=== PATIENT | female | born 2000 | race Caucasian/White ===

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

== ENCOUNTER 2022-07-02 12:36 | Observation (INO) | payer BC, MEDICAID, SELFPAY ==
[2022-07-02 12:14] VITALS: BP 123/76; PULSE 104
[2022-07-02 12:15] VITALS: BP 112/81; PULSE 134
[2022-07-02 12:30] VITALS: BP 124/79; PULSE 92
[2022-07-02 12:45] VITALS: BP 115/75; PULSE 89; TEMP 37
[2022-07-02] MEDS: DEXTROSE 5%/LACTATED RINGERS 1,000 ML 999 ML IV CONT (13:13)
[2022-07-02] MEDS: ONDANSETRON INJ 4 MG/2 ML VIAL IV PUSH (13:15)
[2022-07-02 13:16] LABS: Basophils Absolute Auto 0.1 K/mm3 (0.0-0.1); Basophils Percent Auto 0.4 % (0.2-1.2); Eosinophils Percent Auto 0.1 % (0-4.4); Hematocrit 35.5 % (37.0-47.0); Hemoglobin 10.8 g/dL (12.0-15.0); Immature Granulocyte Percent A 0.6 % (0-0.5); Lymphocytes Absolute Auto 0.98 K/mm3 (0.9-3.2); Mean Corpuscular HGB Conc 30.4 g/dl (32-36); Mean Corpuscular Hemoglobin 26.2 pg (26-34); Mean Platelet Volume 10.4 fl (7.4-10.4); Monocytes Absolute Auto 0.7 K/mm3 (0.1-0.6); Monocytes Percent Auto 4.1 % (2.6-8.5); Neutrophils Absolute Auto 14.6 K/mm3 (1.3-6.7); Neutrophils Percent Auto 88.8 % (45.5-73.1); Platelet Count Result 197 k/mm3 (150-375); Red Blood Count 4.13 M/mm3 (4.2-5.4); Red Cell Distribution Width 13.6 % (11.5-14.5); White Blood Count 16.4 K/mm3 (4.5-10.0)
[2022-07-02 13:36] LABS: Alanine Aminotransferase 44 U/L (6-35); Albumin Level 3.7 g/dL (3.7-5.6); Alkaline Phosphatase 140 U/L (45-116); Anion Gap 7 mmol/L (8-16); Aspartate Amino Transferase 32 U/L (14-36); Bilirubin,Total 0.6 mg/dL (0.2-1.3); Blood Urea Nitrogen 8 mg/dL (8-21); Calcium 8.6 mg/dL (8.9-10.7); Carbon Dioxide 22 mmol/L (22-30); Chloride 109 mmol/L (98-107); Estimated Glomerular Filt Rate > 60; Glucose 78 mg/dL (65-110); Potassium 3.9 mmol/L (3.4-5.0); Sodium 138 mmol/L (134-143)
[2022-07-02 13:41] VITALS: BMI 27.2
--- NOTE | 2022-07-02 13:41 | OBADM ---
This patient, Jose Encinas, admitted to the OB room OB Post 117 for observation. Patient/family oriented to hospital policies and general routines including ID bracelet, bed and alarms, visiting hours, pain management, procedures, bathroom and other care routines, personal items, smoking policy, room service/diet, and visiting hours. Patient/Family are encouraged to report perceived risks to care and to ask questions if they do not understand what they are told or what they should do. Pt. presents with reports of vomiting X8 since 929 this a.m., states she hasn't been able to eat or drink, reports movement and denies any ctxns.
[2022-07-02 14:19] LABS: Appearance Urine Clear (Clear); Bacteria Urine Rare /hpf; Bilirubin Urine Negative (Negative); Blood Urine Negative (Negative); Color Urine Yellow (Yellow); Glucose Urine UA 1+ mg/dL (Negative); Ketones Urine Trace mg/dL (Negative); Leukocyte Esterase Ur 1+ LEU/UL (Negative); Nitrate Urine Negative (Negative); Protein Urine Trace mg/dL (Negative); RBC Urine 0-2 /hpf (0-2); Specific Grav Ur 1.023 (1.001-1.035); Squamous Epithelial Cell Urine Few /hpf (Few); pH Urine 5.5 (5.0-9.0)
[2022-07-02 14:34] LABS: Add Urine Microscopic? YES
--- NOTE | 2022-07-26 14:25 | P.PNOB_ITS ---
OB - Triage/Final Diagnosis Visit Information Comments/Additional reasons for admission: I have assessed the risk for this patient, Jose Encinas, and determined that she would benefit from observation care. Evaluation Laboratory results: Laboratory Tests 07/02/22 07/02/22 07/02/22 12:49 13:03 13:03 WBC 16.4 H RBC 4.13 L Hgb 10.8 L Hct 35.5 L MCV 86.0 MCH 26.2 MCHC 30.4 L RDW 13.6 Plt Count 197 MPV 10.4 Immature Gran % (Auto) 0.6 H Neut % (Auto) 88.8 H Lymph % (Auto) 6.0 L [place] % (Auto) 4.1 Eos % (Auto) 0.1 Baso % (Auto) 0.4 Lymph # (Auto) 0.98 [place] # (Auto) 0.7 H Eos # (Auto) 0.0 Baso # (Auto) 0.1 Abs Immat Gran (auto) 0.10 H Absolute Neuts (auto) 14.6 H Absolute Nucleated RBC 0.0 Nucleated RBC % 0.0 Sodium 138 Potassium 3.9 Chloride 109 H Carbon Dioxide 22 Anion Gap 7 L BUN 8 Creatinine 0.50 L Estim Creat Clear Calc Not Reportable Estimated GFR > 60 Glucose 78 Calcium 8.6 L Total Bilirubin 0.6 AST 32 ALT 44 H Alkaline Phosphatase 140 H Total Protein 7.0 Albumin 3.7 Urine Color Yellow Urine Appearance Clear Urine pH 5.5 Ur Specific [place] 1.023 Urine Protein Trace Urine Glucose (UA) 1+ H Urine Ketones Trace Ur Blood (Man) Negative Urine Nitrate Negative Urine Bilirubin Negative Urine Urobilinogen 1.0 Leukocyte Esterase Rfl 1+ H Urine RBC 0-2 Urine WBC 11-20 Ur Squamous Epith Cells Few Urine Bacteria Rare Urine Casts 3-5 Final Diagnosis (1) Nausea and vomiting during : Code(s): O21.9 - Vomiting of , unspecified Status: Acute
== END 2022-07-02 15:15 | disposition home or self-care (01) ==
PROVIDERS: Admitting Provider Obstetrics & Gynecology; Visit Provider Obstetrics & Gynecology
DX: O21.2 Late vomiting of pregnancy (principal); Z3A.37 37 weeks gestation of pregnancy
CPT/HCPCS: 36415; 80053; 81001; 85025; 87086; 87088; 96374; G0378; J2405; J7121

== ENCOUNTER 2022-07-18 06:08 | Inpatient (IN) | payer BC, OTHER, SELFPAY ==
[2022-07-18] VITALS (112 sets, daily range): BP systolic 108–152; BP diastolic 60–96; PULSE 64–124; RESP 16–18; TEMP 36.2–36.8; O2SAT 93–100; BMI 27.2
--- NOTE | 2022-07-18 06:33 | P.PNAN_ITS ---
Anes - Eval Pre Procedure Procedure: labor epidural Date/Time: 07/18/22 06:33 Surgeon: obinna Preop Diagnosis: pain during labor Pre Op Diagnosis: Induction of Labor Patient Data Age: 21 Gender: F Height: Weight: Allergies Allergy/AdvReac Type Severity Reaction Status Date / Time No Known Allergies Allergy Verified 04/16/19 15:09 Home Medications Medication Instructions Recorded Confirmed Type vit no.95-ferrous 1 tablet PO DAILY 06/19/22 06/19/22 History fumarate 28 mg-folic acid 800 mcg tablet () ondansetron 4 mg disintegrating 4 mg PO Q6H PRN Nausea #10 tabs 07/02/22 Rx tablet Patient hx anesthesia problems: none Family hx anesthesia problems: none Results Review: All pre-operative results and documents have been reviewed as part of the pre- operative evaluation. [facility] Past Medical History Medical History (Updated 07/18/22 @ 06:34 by Mei Damian CRNA) IUP (intrauterine ), incidental Scoliosis Surgical History Surgical History History of oral surgery Family History Family History Mother Hypertension Social History Social History Smoking status: Light tobacco smoker Tobacco type: e-cigarettes/vaping Alcohol intake: never Substance use: never Substance use type: does not use Spiritual care concerns: No Exam Day of Procedure 07/18/22 06:33
[2022-07-18 07:04] LABS: Basophils Absolute Auto 0.1 K/mm3 (0.0-0.1); Basophils Percent Auto 0.6 % (0.2-1.2); Eosinophils Percent Auto 0.4 % (0-4.4); Hematocrit 31.8 % (37.0-47.0); Immature Granulocyte Absolute 0.05 K/mm3 (0.00-0.031); Immature Granulocyte Percent A 0.6 % (0-0.5); Lymphocytes Absolute Auto 1.97 K/mm3 (0.9-3.2); Lymphocytes Percent Auto 24.9 % (18.3-44.2); Mean Corpuscular HGB Conc 31.4 g/dl (32-36); Mean Corpuscular Hemoglobin 26.3 pg (26-34); Mean Corpuscular Volume 83.7 fl (80-100); Mean Platelet Volume 10.9 fl (7.4-10.4); Monocytes Absolute Auto 0.6 K/mm3 (0.1-0.6); Neutrophils Absolute Auto 5.2 K/mm3 (1.3-6.7); Neutrophils Percent Auto 65.5 % (45.5-73.1); Platelet Count Result 189 k/mm3 (150-375); Red Cell Distribution Width 14.6 % (11.5-14.5); White Blood Count 7.9 K/mm3 (4.5-10.0)
[2022-07-18] MEDS: OXYTOCIN 30 UNITS/NS 500 ML 30 UNITS/500 ML BAG 6 UNITS IV CONT (07:31)
[2022-07-18] MEDS: LACTATED RINGERS 1,000 ML 125 ML IV CONT ×2 (07:34→10:14)
--- NOTE | 2022-07-18 08:41 | WPDOBADMIT ---
Obstetrics - Admit Note Admission Note: record reviewed. Additions to the history and/or subsequent changes in the physical findings follow. 21 y/o G1 at 39 6/7 weeks here for scheduled induction of labor. GBS neg. AVSS NST reactive TOCO: contractions every 2-4 min ABD soft, nontender, gravid, vertex EXT nontender Cervix 3/80/-2. AROM with thinly meconium-stained fluid. A: IUP at 39 6/7 weeks with favorable cervix, desiring induction of labor. P: Oxytocin. Anticipate .
[2022-07-18] MEDS: fentaNYL CITRATE INJ (*CRX) 100 MCG/2 ML VIAL 50 MCG IV PUSH (09:13)
[2022-07-18 11:28] LABS: Rapid Plasma Reagin Non-Reactive (NonReactive)
--- NOTE | 2022-07-18 14:53 | PM.OBPRVD ---
OB - Delivery Note Procedure Delivery date: 07/18/22 Procedure: Induction of labor with Induction method: Per Pitocin Protocol Delivery augmentation: Rupture of Membranes and Pitocin Delivery monitor: External FHT and External Uterine Route of delivery: Laceration Description: Perineal - 2nd Degree and Labial Delivery repair: vicryl (3-0) Specimen: Yes (cord blood) Quantitative Blood Loss (ml): 450 Anesthesia type: Epidural Disposition: PACU Complications: None Narrative: 21 y/o G1 at 39 6/7 weeks gestation who presented to the hospital for induction of labor. Oxytocin was administered intravenously. Amniotomy was performed with return of thinly meconium-stained fluid. She received an epidural for pain control. Her labor progressed and her cervix dilated completely. She pushed with good effort and delivered the infant's head to the perineum, followed by the body. The nose and mouth were bulb suctioned. After a delay, the cord was clamped and cut. The was handed off the field. Cord blood was collected. The placenta delivered spontaneously and was grossly normal in appearance. The usual 3 vessel cord was noted. A second degree midline perineal laceration was sustained. This was reapproximated using 3 0 Vicryl in the usual layered fashion. A left labial laceration was also reapproximated using 3-0 Vicryl in interrupted, figure of eight fashion. Excellent hemostasis resulted as did excellent reapproximation of the normal anatomy. Needle and instrument counts were correct. The patient was taken to recovery room in stable condition. The went to the nursery in stable condition. I was present and scrubbed for the entire delivery. Baby Date of : 07/18/22 Time of : 14:31 Weeks of gestation at delivery: 39 gender: Male Weight (pounds): 7 Weight (ounces): 11 presentation: vertex position: Left Occiput Anterior Placenta delivery description: Spontaneous and Normal Configuration Cord Vessel Description: 3 Vessels and Delayed Cord Clamping score one minute: 9 score five minutes: 9
[2022-07-18] MEDS: OXYTOCIN 30 UNITS/NS 500 ML 30 UNITS/500 ML BAG 125 UNITS IV CONT (15:30)
--- NOTE | 2022-07-18 17:03 | PM.OBDSVD ---
DS: Admitting Diagnosis Discharge Date 07/20/22 Admitting Diagnosis IUP at 39 6/7 weeks Favorable cervix DS: Discharge Diagnosis Discharge Diagnosis (1) (normal spontaneous vaginal delivery): Code(s): O80 - Encounter for full-term uncomplicated delivery Status: Acute OB - DS: Summary OB Procedures : None OB Procedures Intrapartum: Spontaneous Vag Delivery OB Procedures: : None Time Spent with Patient Time attestation: Total time spent providing and/or coordinating discharge services: DS: Data Data Completed and Pending Labs on day of discharge: Labs from last 24 hours 07/18/22 07/18/22 07/18/22 06:44 06:44 06:44 WBC 7.9 RBC 3.80 L Hgb 10.0 L Hct 31.8 L MCV 83.7 MCH 26.3 MCHC 31.4 L RDW 14.6 H Plt Count 189 MPV 10.9 H Immature Gran % (Auto) 0.6 H Neut % (Auto) 65.5 Lymph % (Auto) 24.9 [place] % (Auto) 8.0 Eos % (Auto) 0.4 Baso % (Auto) 0.6 Lymph # (Auto) 1.97 [place] # (Auto) 0.6 Eos # (Auto) 0.0 Baso # (Auto) 0.1 Abs Immat Gran (auto) 0.05 H Absolute Neuts (auto) 5.2 Absolute Nucleated RBC 0.0 Nucleated RBC % 0.0 RPR Non-reactive Blood Type O Positive Antibody Screen Negative Discharge Plan Discharge Attending physician on discharge: Ramsey Aden Discharging Clinician: Ramsey Aden Patient Disposition: Home, Self-Care Activity: pelvic rest Diet: regular Discharge Instructions: Call or return if temperature above 100.4? F, increased abdominal pain, increased vaginal bleeding or any new problems. Stand Alone Forms: General Discharge Information Follow-up/Referrals: Ramsey Aden MD [Physician] - 6 Weeks Discharge Medications: New ferrous sulfate 325 mg (65 mg iron) tablet 325 mg PO DAILY Qty: 30 0RF ibuprofen 600 mg tablet 600 mg PO Q6H PRN (Reason: cramps) Qty: 30 0RF Continued PNV cmb#95-ferrous fumarate-FA [] 28 mg iron- 800 mcg Tablet 1 tablet PO DAILY Date of admission: 07/18/22 06:08 Primary Care Provider: UNKNOWN,DOCTOR Admitting Provider: Ramsey Aden Attending physician on admission: Ramsey Aden Condition: Stable
--- NOTE | 2022-07-18 17:18 | PC.NURSE ---
Patient transferred to post room #284 via wheelchair. Support person present. Oriented to unit, room, information board, rooming in, admission packet and security measures. Patient verbalizes understanding.
[2022-07-18] MEDS: IBUPROFEN 600 MG TABLET PO (21:10)
[2022-07-19 07:40] VITALS: BP 120/73; PULSE 86; RESP 14; TEMP 36.5; O2SAT 100
[2022-07-19 07:53] LABS: Hematocrit 26.4 % (37.0-47.0); Hemoglobin 8.1 g/dL (12.0-15.0)
--- NOTE | 2022-07-19 08:00 | PC.NURSE ---
PT introductions made and plan of care discussed per post , pain management, breast feeding, daily care activities. PT and family both recipients of such instructions and no barriers to learning identified at this time. PT received such instructions per one to one discussion, mom baby care guide and demonstrations this shift. PT verbalized understanding of such care.
[2022-07-19] MEDS: MULTIVIT/MIN/PREN/FOL AC/IRON TABLET 1 TAB PO (08:57)
[2022-07-19] MEDS: DOCUSATE SODIUM 100 MG CAPSULE PO ×2 (08:57→17:55)
[2022-07-19] MEDS: POLYSACCHARIDE IRON COMPLEX 150 MG CAPSULE PO ×2 (08:57→17:54)
[2022-07-19 08:58] VITALS: PULSE 86; RESP 14; O2SAT 100
[2022-07-19] MEDS: IBUPROFEN 600 MG TABLET PO ×2 (08:58→17:54)
[2022-07-19] MEDS: LANOLIN (LANSINOH) 7.5 GM CREAM 1 APPLIC TOPICAL (08:59)
--- NOTE | 2022-07-19 09:27 | PC.NURSE ---
On 07/19/22, the student, Davy Stevens, provided care and completed [facility] documentation on this patient. I have reviewed the student's documentation and agree with the findings.
[2022-07-19] MEDS: TETANUS,DIPHTHERIA,AC PERTUSSIS ADULT (0.5 ML) BOOSTRIX IM (11:52)
--- NOTE | 2022-07-19 11:57 | PC.NURSE ---
[id number] Introductions were made, then consulted with patient to assess needs related to . Mother is demonstrating cradle position on the left breast and denies pain. Education given to mother on how to visualize and hear swallowing at the breast. Resources provided for inpatient and outpatient services with a business card and name written on the white board. Mother states her Mother has been helping her and she breastfed 5 babies and she has [facility] services to assist. RN encouraged support using her outpatient resources and Shawn resources if needed. Mother voiced understanding of information and will call if there is a request for assistance. Reported to the primary RN.
[2022-07-19 12:26] VITALS: BP 111/79; PULSE 80; RESP 16; TEMP 36.8; O2SAT 100
--- NOTE | 2022-07-19 12:28 | PM.OBPNVD ---
OB - PN: Subj Subjective Date/time seen: 07/19/22 12:28 Narrative: Pain OK. Would like circumcision for son. OB - PN: Obj Data Labs 07/19/22 07:38 Labs: Laboratory Results - last 24 hr 07/19/22 07:38 Hgb 8.1 L Hct 26.4 L OB - PN A/P Plan Comments: A: PPD#1, doing well. P: Routine care. Reviewed circ. Exam Psych: Other: AVSS ABD soft, nontender, fundus firm EXT nontender
--- NOTE | 2022-07-19 14:04 | WPDANLDPN2 ---
Anes-Prog Note L&D Date/Time: 07/19/22 14:04 Comfortable throughout: labor and delivery Neuraxial method: epidural Epidural/Spinal procedure site: clean & non-tender Neuro status: Neuro function grossly intact. Cardiovascular status: normal Respiratory status: normal Airway patency: baseline Mental status: baseline Post-Op hydration status: normal Vital Signs: Last Vital Signs Temp 36.8 C 07/19/22 12:26 Pulse 80 07/19/22 12:26 Resp 16 07/19/22 12:26 BP 111/79 07/19/22 12:26 Pulse Ox 100 07/19/22 12:26 O2 Del Method Room Air 07/19/22 08:58 Pain score (VAS): 2 I/O: Intake & Output 07/18/22 07/19/22 07/19/22 23:59 07:59 15:59 Intake Total 300 Output Total 100 Balance -100 300 Post-procedural complaints: none Patient feedback: Patient satisfied with anesthetic care.
[2022-07-19 20:15] VITALS: BP 126/78; PULSE 98; RESP 16; TEMP 37.2; O2SAT 100
[2022-07-20 07:45] VITALS: BP 117/72; PULSE 83; RESP 18; TEMP 37.2; O2SAT 100
[2022-07-20] MEDS: DOCUSATE SODIUM 100 MG CAPSULE PO (08:02)
[2022-07-20] MEDS: POLYSACCHARIDE IRON COMPLEX 150 MG CAPSULE PO (08:02)
[2022-07-20] MEDS: IBUPROFEN 600 MG TABLET PO (08:02)
[2022-07-20] MEDS: MULTIVIT/MIN/PREN/FOL AC/IRON TABLET 1 TAB PO (08:02)
--- NOTE | 2022-07-20 09:19 | PM.OBPNVD ---
OB - PN: Subj Subjective Date/time seen: 07/20/22 09:19 Narrative: Pain OK. Would like to go home. OB - PN: Obj Data Labs 07/19/22 07:38 OB - PN A/P Plan Comments: A: PPD#2, doing well. P: Home to f/u 6 weeks. Exam Psych: Other: AVSS ABD soft, nontender, fundus firm EXT nontender
--- NOTE | 2022-07-20 11:22 | PC.NURSE ---
[id number] Mother is demonstrating her ability to independently and effectively breastfeed her in the cradle position and denies pain after the initial latch. She denies any nipple discomfort and is responsively , however; there is a healing injury on the right nipple. There's misshaped nipple after detaches from the left breast. Reviewed with mother and maternal mother (who breastfed 5 children and is very supportive) how to set up good positioning for the using football hold. is content and not interested in on the right breast at this time. Infant is placed skin to skin and there is an offer of assistance to practice good alignment, positioning, if there's pain with the latch or infant doesn't wake to breastfeed. Infant is currently meeting outcomes for weight, output, jaundice and feeding frequencies of 8-12 times in 24 hours. Mother declines any additional assistance/education at this time. Mother voiced understanding of information shared and the mom reminded of the mom/baby guide for an additional resource. Mother states she also has W[employer] support as well. Reported to the primary RN.
--- NOTE | 2022-07-20 13:19 | PC.NURSE ---
Patient viewed the discharge video Mother & Baby Care, The First Two Weeks . Patient was given the opportunity and encouraged to ask questions. Patient verbalized understanding of information shared and has been given the mother/baby guide for home reference.
== END 2022-07-20 14:00 | disposition home or self-care (01) | DRG 807 ==
LOC: ANHLDR 17:04 → ANHOB2 17:22
PROVIDERS: Admitting Provider Obstetrics & Gynecology; Visit Provider Obstetrics & Gynecology
DX: O77.0 Labor and delivery complicated by meconium in amniotic fluid (principal); Z37.0 Single live birth; O70.1 Second degree perineal laceration during delivery; Z3A.39 39 weeks gestation of pregnancy
CPT/HCPCS: 36415; 85014; 85018; 85025; 86592; 86850; 86900; 86901; 90715; A9270; J2590; J2795; J3010; J7120

== ENCOUNTER 2024-08-15 01:06 | Emergency (ER) | payer BC, SELFPAY ==
[2024-08-15 01:09] VITALS: BP 117/78; PULSE 87; RESP 20; TEMP 36.6; O2SAT 100
--- NOTE | 2024-08-15 02:06 | ED_ITS ---
HPI - Ear Problem General Chief complaint: Ear Stated complaint: ear pain Time Seen by Provider: 08/15/24 02:03 Source: patient and family Mode of arrival: ambulatory Limitations: no limitations History of Present Illness HPI Narrative: 23-year-old otherwise healthy here with a complains of severe right ear pain that started this morning. Patient states that her throat is also sore denies any fever with chills. History of seasonal allergies. MD Complaint: ear pain Location: right ear Duration: constant Severity: moderate Relieving factors: nothing Exacerbating factors: nothing Discharge from ear: Reports yes - bloody Treatment prior to arrival: none Related Data Home Medications ?Medication ?Instructions ?Recorded ?Confirmed ?Last Taken ?Type vit no.95-ferrous 1 tablet PO DAILY 06/19/22 07/18/22 07/18/22 History fumarate 28 mg-folic acid 800 mcg 0530 tablet () Allergies Allergy/AdvReac Type Severity Reaction Status Date / Time No Known Allergies Allergy Verified 08/15/24 01:07 Review of Systems Review of Systems: All systems reviewed & are unremarkable except as noted in HPI and below Constitutional: Constitutional: Reports no additional constitutional complaints Eyes: Eyes: Reports no additional eye complaints ENT: Reports as per HPI Cardiovascular: Cardiovascular: Reports as per HPI Respiratory: Respiratory: Reports as per HPI Gastrointestinal: Gastrointestinal: Reports no additional gastrointestinal complaints Musculoskeletal: Musculoskeletal: Reports no additional musculoskeletal complaints [facility] Past Medical History Medical History IUP (intrauterine ), incidental Scoliosis Surgical History Surgical History History of oral surgery Family History Family History Mother Hypertension Social History Social History Smoking status: Never smoker Tobacco type: e-cigarettes/vaping Alcohol intake: never Substance use: never Substance use type: does not use Lack of Transportation: No Lack of Food: Never True Current Housing: I Do Not Have Housing Concerned About Future Housing: No Difficulty Paying Gas/Electric Bills: No Difficulty Paying for Meds: No Currently Unemployed: No Education: High School Diploma/GED Difficulty w/ Childcare or Family Care: No Spiritual care concerns: No Exam Narrative: GENERAL: Well-appearing, well-nourished, and in no acute distress. HEAD: Normocephalic, atraumatic. EYES: PERRLA and EOMI. ENT: Nares clear, no rhinorrhea or epistaxis. Mucous membranes moist. Right TM is bulging red and no obvious drainage left TM looks normal NECK: Supple. CHEST: Clear to auscultation. No respiratory distress. HEART: Regular rate and rhythm. No murmur heard. Normal peripheral pulses. EXTREMITIES: Normal range of motion. No edema. SKIN: Warm, dry, no rash. NEURO: No focal deficits. Alert and oriented x3. PSYCH: Normal mood and affect. Course Course Emergency Course: Notified patient her findings and was take antibiotic as prescribed. Vital Signs Vital signs: Vital Signs Temperature 36.6 C 08/15/24 01:09 Pulse Rate 87 08/15/24 01:09 Respiratory Rate 20 08/15/24 01:09 Blood Pressure 117/78 08/15/24 01:09 Pulse Oximetry 100 08/15/24 01:09 Oxygen Delivery Room Air 08/15/24 01:09 Temperature 36.6 C 08/15/24 01:09 Pulse Rate 87 08/15/24 01:09 Respiratory Rate 20 08/15/24 01:09 Blood Pressure 117/78 08/15/24 01:09 Pulse Oximetry 100 08/15/24 01:09 Oxygen Delivery Room Air 08/15/24 01:09 Medical Decision Making Vital Signs Vital Signs: Vital Signs Temperature 36.6 C 08/15/24 01:09 Pulse Rate 87 08/15/24 01:09 Respiratory Rate 20 08/15/24 01:09 Blood Pressure 117/78 08/15/24 01:09 Pulse Oximetry 100 08/15/24 01:09 Oxygen Delivery Room Air 08/15/24 01:09 Temperature 36.6 C 08/15/24 01:09 Pulse Rate 87 08/15/24 01:09 Respiratory Rate 20 08/15/24 01:09 Blood Pressure 117/78 08/15/24 01:09 Pulse Oximetry 100 08/15/24 01:09 Oxygen Delivery Room Air 08/15/24 01:09 Discharge Plan Discharge Clinical Impression: Otitis media Qualifiers: Otitis media type: unspecified nonsuppurative Laterality: right Qualified Code(s): H65.91 - Unspecified nonsuppurative otitis media, right ear Patient Disposition: Home Condition: Stable Instructions: Antibiotic Form, Ear Infection (AC) Patient Language: Bulgarian Prescriptions: New amoxicillin 875 mg tablet 875 mg PO Q12H Qty: 20 0RF ibuprofen 600 mg tablet 600 mg PO TID PRN (Reason: pain) Qty: 20 0RF No Action PNV cmb#95-ferrous fumarate-FA [] 28 mg iron- 800 mcg Tablet 1 tablet PO DAILY ferrous sulfate 325 mg (65 mg iron) tablet 325 mg PO DAILY Qty: 30 0RF ibuprofen 600 mg tablet 600 mg PO Q6H PRN (Reason: cramps) Qty: 30 0RF Follow-up/Referrals: Derrick Saavedra DO [Physician] - UNKNOWN,DOCTOR [Primary Care Provider] - Time of Disposition: 02:10
[2024-08-15] MEDS: HYDROcodone/acetaminophen (*CRX) 5-325 MG TABLET 1 TAB PO (02:29)
== END 2024-08-15 02:30 | disposition home or self-care (01) ==
PROVIDERS: Emergency Provider Family Medicine
DX: H65.91 Unspecified nonsuppurative otitis media, right ear (principal)
CPT/HCPCS: 99283; A9270